=== PATIENT | female | born 1950 | race Caucasian/White ===

== ENCOUNTER 2020-03-28 17:09 | Emergency (ER) | payer MEDICARE ==
[~2020-03-28] VITALS: Ht 160 cm; Wt 113.8 kg
[~2020-03-28 17:09] MED LIST: ACET500 PO; ALBU3IS INH; ALBU90OI INH; ASPI325 PO; ATOR40TA PO; AZIT250 PO; BENZ100A PO; BISA10S PR; BUDE6HFA INH; CEPH500 PO; CETI5 PO; CIPRO500 MG PO; CODACEE120 PO; CVS DISPOSABLE399 ML PR; CYCL10 PO; Colace100 MG PO; Cyclobenzaprine5 MG PO; DOXY100 PO; FLUC100 PO; Flagyl250 MG PO; GABA300 PO; GABA300T24; GRALISE600 MG PO; HYDACE5 PO; HYDCOR2.5B TOP; HYDVAL.2TA TOP; IBUP800 PO; LEVFLO500 PO; LISI20 PO; LISI5 PO; METF500 PO; METO50ER PO; METPRE4DP PO; MUPI2TO; Milk Of Ma800 MG/5 M PO; NABU500 PO; NITR100CA PO; NORT25 PO; Naprosyn375 MG PO; Norco 10-325 T1 EACH PO; Norco 5-325 Ta1 EACH PO; OXYC5 PO; PRED20 PO; PREG75 PO; Prednisone20 MG PO; Prinivil10 MG PO; RXALBOI INH; RXCODACESY PO; SIMV10 PO; SIMV40 PO; SULTRIDS PO; TOLT2 PO; TRIA80TC TOP; VALA500 PO; VALACYCLOVIR1000 MG PO; VITAMIN D32000 UNIT PO; Ventolin Soln3 ML INH; Zithromax250 MG PO; Zofran Odt4 MG SL; [UNRECOGNIZED DRUG - REMARK]
[2020-03-28] MEDS ORDERED: CALCIUM MAGNES1 EACH PO (17:35)
[2020-03-28] MEDS ORDERED: Primidone50 MG PO (17:37)
[2020-03-28] MEDS ORDERED: METF500 PO (17:38)
[2020-03-28] MEDS ORDERED: LOSA50 PO (17:38)
[2020-03-28] MEDS ORDERED: ZYRTEC10 M2 PO (17:39)
[2020-03-28 17:40] LABS: Source, Urine Catheter
[2020-03-28 17:46] LABS: Appearance, Urine Clear (Clear); Bilirubin, Urine Neg (Neg); Blood, Urine Neg (Neg); Color, Urine Yellow (P-Yellow); Glucose Qualitative, Urine Neg (Neg); Ketones, Urine Neg (Neg); Leukocyte Esterase, Urine 2+ (Neg); Nitrite, Urine Pos (Neg); Protein, Urine Neg (Neg); Specific Gravity, Urine 1.005 (1.003-1.022); Urobilinogen, Urine NORM (Normal)
[2020-03-28 17:57] LABS: Bacteria Many /hpf; Red Blood Cells, Urine 0-2 /hpf (0-2); Squamous Epithelial Cells Mod /hpf (Few)
[2020-03-28 17:59] LABS: BASOPHILS ABSOLUTE AUTO 0.05 K/mm3 (0.00-0.23); BASOPHILS PERCENT AUTO 1 % (0-2); EOSINOPHILS ABSOLUTE AUTO 0.22 K/mm3 (0.00-0.68); EOSINOPHILS PERCENT AUTO 2 % (0-6); Hematocrit 39.5 % (33.0-51.0); Hemoglobin 12.9 g/dL (11.5-16.0); IMMATURE GRAN ABSOLUTE AUTO 0.03 K/mm3 (0.00-0.10); IMMATURE GRAN PERCENT AUTO 0 % (0-1); LYMPHOCYTES ABSOLUTE AUTO 2.31 K/mm3 (0.84-5.20); LYMPHOCYTES PERCENT AUTO 23 % (21-46); MONOCYTES ABSOLUTE AUTO 0.62 K/mm3 (0.16-1.47); MONOCYTES PERCENT AUTO 6 % (4-13); Mean Corpuscular HGB 29.5 pg (26.0-34.0); Mean Corpuscular HGB Conc 32.7 g/dL (31.5-36.5); Mean Corpuscular Volume 90 fL (80-100); Mean Platelet Volume 10.5 fL (9.1-12.4); NEUTROPHILS ABSOLUTE AUTO 6.86 K/mm3 (1.96-9.15); NEUTROPHILS PERCENT AUTO 68 % (41-73); Platelet Count 256 K/mm3 (150-400); RDW Coefficient Variation 13.2 % (11.7-14.2); RDW Standard Deviation 43.8 fL (35.1-46.3); Red Blood Cell Count 4.38 M/mm3 (3.80-5.20); White Blood Cell Count 10.09 K/mm3 (4.00-11.30)
[2020-03-28] MEDS ORDERED: CIPR500 PO (18:18)
[2020-03-28 18:23] LABS: Albumin, Blood 3.8 g/dL (3.4-5.0); Bilirubin, Total 0.4 mg/dL (0.1-1.0); Bun/Creatinine Ratio 19.1 (12.0-20.0); Calcium, Blood 9.3 mg/dL (8.5-10.1); Creatinine, Blood 1.15 mg/dL (0.40-1.00); Globulin, Blood 3.7 g/dL (2.2-4.0); Potassium, Blood 4.1 mmol/L (3.5-5.5); Total Protein, Blood 7.5 g/dL (6.4-8.2)
== END 2020-03-28 18:56 | disposition home or self-care (01) ==
LOC: ER 17:09
PROVIDERS: Physician Assistant
DX: N12 Tubulo-interstitial nephritis, not specified as acute or chronic (principal); N28.9 Disorder of kidney and ureter, unspecified; E11.9 Type 2 diabetes mellitus without complications; Z79.82 Long term (current) use of aspirin; Z79.899 Other long term (current) drug therapy; Z79.84 Long term (current) use of oral hypoglycemic drugs
CPT/HCPCS: 36415; 80053; 81001; 85025; 87077; 87086; 87186; 96361; 96365; 99284-25; J0696